=== PATIENT | female | born 2000 | race Caucasian/White ===

== ENCOUNTER 2024-01-17 17:15 | Emergency (ER) | payer MEDICAID, OTHER, SELFPAY ==
[2024-01-17 17:47] VITALS: BP 134/72; PULSE 90; RESP 18; TEMP 36.7; O2SAT 99; BMI 33.9
--- NOTE | 2024-01-17 17:48 | ED.HA ---
HPI - Headache General Chief Complaint: Headache Stated Complaint: headache Related Data Allergies Allergy/AdvReac Type Severity Reaction Status Date / Time No Known Allergies Allergy Verified 01/17/24 17:53 [facility] Social History Social History Advance Directives: No Advance Directives Information Provided: No Physical Exam Vital Signs: Vital Signs: Last Vital Signs Temp 98.1 F 01/17/24 17:47 Pulse 90 01/17/24 17:47 Resp 18 01/17/24 17:47 BP 134/72 01/17/24 17:47 Pulse Ox 99 01/17/24 17:47 O2 Del Method Room Air 01/17/24 17:47 BMI result Body Mass Index 33.9 Course Course Course Narrative: This is a Rapid Medical Examination (RME) in triage, full HPI, ROS, assessment and plan per primary provider in the Main ED. Ness is a 23 year old female presenting today for evaluation of headache for 1 week, pain in right upper extremity for 3 days and numbness on one side of the face for 3 hours. Took tylenol 3 hours ago without relief. Reports weakness and decreased strength on right side. Reports crisis with migraine headaches about 6 months ago. Has photophobia and blurriness with headaches. Plan: CT head, labs, treat for migraine Medical Decision Making Lab Data 01/17/24 18:06 01/17/24 18:06 Labs: Lab Results 01/17/24 Range/Units 18:06 WBC 8.6 (4.8-10.8) X10*3/uL RBC 4.51 (4.20-5.50) X10*6/uL Hgb 12.4 (12.0-16.0) g/dl Hct 38.4 (37.0-47.0) % MCV 85.1 (80.0-98.0) fL MCH 27.5 (27.0-33.0) pg MCHC 32.3 (31.0-35.0) g/dl RDW 13.0 (11.0-16.0) % Plt Count 306 (160-400) X10*3/uL MPV 8.9 L (9.4-12.3) fL Immature Gran % (Auto) 0.2 (0.0-0.4) % Neut % (Auto) 46.3 (45-73) % Lymph % (Auto) 46.2 H (20-40) % [place] % (Auto) 4.8 (2-11) % Eos % (Auto) 2.0 (0-4) % Baso % (Auto) 0.5 (0-2) % Lymph # (Auto) 4.0 (1.2-4.9) X10*3/uL [place] # (Auto) 0.4 (0.1-1.2) X10*3/uL Eos # (Auto) 0.2 (0.0-0.4) X10*3/uL Baso # (Auto) 0.0 (0.0-0.2) X10*3/uL Abs Immat Gran (auto) 0.02 (0.00-0.03) X10*3/uL Absolute Neuts (auto) 4.0 (2.0-8.3) x10*3/uL Absolute Nucleated RBC 0.000 (0.0-0.012) X10*3/uL Nucleated RBC % (auto) 0.0 (0.0-0.2) /100WBC Sodium 142 (135-145) mmol/L Potassium 3.8 (3.3-5.1) mmol/L Chloride 109 H (96-108) mmol/L Carbon Dioxide 25 (22-29) mmol/L Anion Gap 12 (12-20) BUN 10 (9-16) mg/dL Creatinine 0.73 (0.5-1.4) mg/dL Estim Creat Clear Calc 141.8 Estimated GFR > 60 Random Glucose 88 (60-115) mg/dL Calcium 9.3 (8.4-10.2) mg/dL Magnesium 2.1 (1.6-2.6) mg/dL Discharge Plan Discharge Clinical Impression: Headache Patient Disposition: Left W/O Completing Treatment Discharge Date/Time: 01/17/24 20:35 Print Language: Nepali
[2024-01-17 18:14] LABS: MANUAL DIFF FLAG NO
[2024-01-17 18:30] LABS: Anion Gap 12 (12-20); Blood Urea Nitrogen 10 mg/dL (9-16); Calcium 9.3 mg/dL (8.4-10.2); Carbon Dioxide 25 mmol/L (22-29); Chloride 109 mmol/L (96-108); Creatinine Clr Calc Pharmacy 141.8; Estimated Glomerular Filt Rate > 60; Glucose Random 88 mg/dL (60-115); Magnesium 2.1 mg/dL (1.6-2.6); Potassium 3.8 mmol/L (3.3-5.1); Sodium 142 mmol/L (135-145)
[2024-01-17 18:37] LABS: Basophils Percent Auto 0.5 % (0-2); Eosinophils Absolute Auto 0.2 X10*3/uL (0.0-0.4); Hematocrit 38.4 % (37.0-47.0); Hemoglobin 12.4 g/dl (12.0-16.0); Imm Gran Abs Auto 0.02 X10*3/uL (0.00-0.03); Imm Gran Pct Auto 0.2 % (0.0-0.4); Lymphocytes Percent Auto 46.2 % (20-40); Mean Corpuscular HGB Conc 32.3 g/dl (31.0-35.0); Mean Corpuscular Hemoglobin 27.5 pg (27.0-33.0); Mean Corpuscular Volume 85.1 fL (80.0-98.0); Mean Platelet Volume 8.9 fL (9.4-12.3); Monocytes Absolute Auto 0.4 X10*3/uL (0.1-1.2); Monocytes Percent Auto 4.8 % (2-11); Neutrophils Percent Auto 46.3 % (45-73); Platelet Count 306 X10*3/uL (160-400); Red Blood Count 4.51 X10*6/uL (4.20-5.50); White Blood Count 8.6 X10*3/uL (4.8-10.8)
== END 2024-01-17 20:35 | disposition left against medical advice (07) ==
PROVIDERS: Physician Assistant; Emergency Provider Emergency Medicine
DX: R51.9 Headache, unspecified (principal); M79.601 Pain in right arm
CPT/HCPCS: 36415; 80048; 83735; 85025; 99281; 99283

== ENCOUNTER 2024-05-14 12:50 | Outpatient (REF) | payer MEDICAID, OTHER, SELFPAY ==
[2024-05-14 16:06] LABS: MANUAL DIFF FLAG NO
[2024-05-14 16:16] LABS: Basophils Percent Auto 0.4 % (0-2); Eosinophils Absolute Auto 0.2 X10*3/uL (0.0-0.4); Eosinophils Percent Auto 2.6 % (0-4); Hematocrit 38.8 % (37.0-47.0); Hemoglobin 12.7 g/dl (12.0-16.0); Imm Gran Abs Auto 0.01 X10*3/uL (0.00-0.03); Imm Gran Pct Auto 0.1 % (0.0-0.4); Lymphocytes Percent Auto 40.4 % (20-40); Mean Corpuscular HGB Conc 32.7 g/dl (31.0-35.0); Mean Corpuscular Hemoglobin 27.4 pg (27.0-33.0); Mean Corpuscular Volume 83.8 fL (80.0-98.0); Mean Platelet Volume 9.4 fL (9.4-12.3); Monocytes Absolute Auto 0.4 X10*3/uL (0.1-1.2); Monocytes Percent Auto 5.7 % (2-11); Neutrophils Absolute Auto 3.8 x10*3/uL (2.0-8.3); Neutrophils Percent Auto 50.8 % (45-73); Platelet Count 346 X10*3/uL (160-400); Red Blood Count 4.63 X10*6/uL (4.20-5.50); Red Cell Distribution Width 13.4 % (11.0-16.0); White Blood Count 7.4 X10*3/uL (4.8-10.8)
[2024-05-14 16:19] LABS: Estimated Average Glucose 105 mg/dL; Hemoglobin A1c % 5.3 % (<6.0)
[2024-05-14 16:42] LABS: Alanine Aminotransferase 18 U/L (0-31); Albumin Level 4.3 g/dL (3.5-5.0); Alkaline Phosphatase 77 U/L (39-117); Anion Gap 12 (12-20); Aspartate Amino Transferase 16 U/L (5-31); Bilirubin Total 0.4 mg/dL (0.0-1.0); Blood Urea Nitrogen 13 mg/dL (9-16); Calcium 9.6 mg/dL (8.4-10.2); Carbon Dioxide 25 mmol/L (22-29); Chloride 108 mmol/L (96-108); Estimated Glomerular Filt Rate > 60; Glucose Random 93 mg/dL (60-115); Potassium 3.7 mmol/L (3.3-5.1); Sodium 141 mmol/L (135-145); Total Protein 7.2 g/dL (6.5-8.0)
[2024-05-14 16:50] LABS: HCG Quantitative < 2 mIU/mL; TSH reflex Free T4 1.36 uIU/mL (0.32-4.0); Vitamin B12 276 pg/mL (200-900); Vitamin D 25-OH Total 38.3 ng/mL (>30)
[2024-05-14 17:39] LABS: CT PCR NOT DETECTED (Not Detect.); NG PCR NOT DETECTED (Not Detect.)
[2024-05-15 04:43] LABS: HBc Num1 0.07 S/CO (0.00-0.79); HIV AB/AG Nonreactive (Nonreactive); HIV Num 1 0.05 S/CO (0.00-0.99); Hepatitis B Core Antibody Nonreactive (Nonreactive); Hepatitis B Surface Antigen Negative (Negative); ~HepC Num1 0.09 S/CO (0.00-0.79); ~Hepatitis B Surface Antibody NONREACTIVE (Nonreactive); ~Hepatitis C Antibody Nonreactive (Nonreactive)
[2024-05-15 10:50] LABS: Bacterial Vaginosis PCR POSITIVE (Negative); Candida Group PCR NOT DETECTED (Not Detect); Candida glab krusei PCR NOT DETECTED (Not Detect); Trichomonas vaginalis PCR NOT DETECTED (Not Detect)
[2024-05-15 12:12] LABS: RPR Rapid Plasma Reagin NON-REACTIVE (NON-REACTIVE)
[2024-05-17 02:29] LABS: TS Negative Control Passed; TS Panel A 0; TS Panel B 0; TS Positive Control Passed; TSpotTB Negative (Negative)
== END 2024-05-14 12:51 | disposition home or self-care (01) ==
LOC: HO.HHCL 12:50
PROVIDERS: Visit Provider Emergency Medicine
DX: Z11.4 Encounter for screening for human immunodeficiency virus [HIV] (principal); Z11.3 Encounter for screening for infections with a predominantly sexual mode of transmission; N92.6 Irregular menstruation, unspecified; R53.83 Other fatigue
CPT/HCPCS: 0352U; 36415; 80053; 82306; 82607; 83036; 84443; 84702; 85025; 86481; 86592; 86704; 86706; 86803; 87340; 87389; 87491; 87591

== ENCOUNTER 2025-01-10 13:00 | Emergency (ER) | payer OTHER, SELFPAY ==
[2025-01-10 13:57] VITALS: BP 119/61; PULSE 64; RESP 20; TEMP 37.2; O2SAT 100; BMI 36.4
--- NOTE | 2025-01-10 13:59 | ED_ITS ---
HPI - General Adult General Chief complaint: Nausea/Vomiting/Diarrhea Stated complaint: stomach pains, vomiting Related Data Allergies Allergy/AdvReac Type Severity Reaction Status Date / Time No Known Allergies Allergy Verified 01/10/25 13:57 [facility] Social History Social History Advance Directives: No Advance Directives Information Provided: No Physical Exam ED Vital Signs: BMI result Body Mass Index 36.4 Course Course Course Narrative: This is a rapid medical exam performed by Rosa Hdez NP: Additional HPI, ROS, PE not included below will be deferred to primary provider. Patient is a 24-year-old female presenting with LLQ abdominal pain, nausea, vomiting and diarrhea for the past 6 hours after eating some beef this morning. Plan: labs, viral panel, UA Discharge Plan Discharge Clinical Impression: Abdominal pain Patient Disposition: Left W/O Completing Treatment Discharge Date/Time: 01/10/25 21:25
== END 2025-01-10 21:25 | disposition left against medical advice (07) ==
PROVIDERS: Emergency Provider Emergency Medicine
DX: R10.9 Unspecified abdominal pain (principal); R11.2 Nausea with vomiting, unspecified
CPT/HCPCS: 99281

== ENCOUNTER 2025-09-05 04:57 | Emergency (ER) | payer SELFPAY ==
--- NOTE | ~2025-09-05 | US_ITS ---
EXAMINATION: US ABDOMEN LIMITED CLINICAL INFORMATION: Right upper quadrant pain.. COMPARISON: None available. TECHNIQUE: Real-time ultrasound of the right upper quadrant abdomen using grayscale technique. FINDINGS: PANCREAS: No peripancreatic fluid collections. LIVER: Liver measures 18 cm. No nodular contour. No solid or cystic lesion. Coarse echotexture. No intrahepatic biliary ductal dilatation. GALLBLADDER: Fluid-filled nondistended. No pericholecystic fluid collection or gallbladder wall thickening. COMMON BILE DUCT: 3 mm. RIGHT KIDNEY: 11 cm. Normal echotexture. Renal cortical thickness is normal. No hydronephrosis. No solid or cystic lesion.. FREE FLUID: None. US/US abdomen limited IMPRESSION: No cholelithiasis or choledocholithiasis. Hepatomegaly. No hydronephrosis, right kidney. No ascites. Electronically signed by: Ronnie Gonzalez MD 09/05/2025 08:38 AM EST
[2025-09-05 04:58] VITALS: BP 130/68; PULSE 76; RESP 20; TEMP 36.6; O2SAT 97; BMI 36.9
--- NOTE | 2025-09-05 05:05 | PC.NURSE ---
Assumed care of pt, abd pain x5 hour, no nausea, pt states pain worsen x1 hour CLIENT CARE SPECIALIST, [id number],
--- NOTE | 2025-09-05 05:15 | ECG_ITS ---
Test Reason : abd pain Blood Pressure : */* mmHG Vent. Rate : 64 BPM Atrial Rate : 64 BPM P-R Int : 182 ms QRS Dur : 94 ms QT Int : 384 ms P-R-T Axes : 18 12 37 degrees QTcB Int : 396 ms Normal sinus rhythm with sinus arrhythmia Normal ECG No previous ECGs available Referred By: Sheryl Llanes Electronically Signed By: VENKAT SELLERS
--- OUTSIDE RECORDS SUMMARY | 2025-09-05 05:33 | XMS_ITS | Clinical Summary ---
Author Organization [employer] Address [address] [place] [address] Care Team Providers Care Wrist Closer Name Role Phone Unavailable Primary Care Provider Unavailabl e Allergies No known active allergies Medications acetaminophen (Tylenol) 500 MG tablet Take 2 tablets (1,000 mg) by mouth every 6 (six) hours if needed for moderate pain or fever for up to 25 doses. 30 tablet 4 Active amitriptyline (Elavil) 10 MG tabletIndication s:Intractable chronic migraine without aura and without status migrainosus Take 1 tablet (10 mg) by mouth at bedtime. 30 tablet 1 4 Active SUMAtriptan (Imitrex) 50 MG tabletIndication s:Intractable chronic migraine without aura and without status migrainosus Take 1 tablet (50 mg) by mouth 1 (one) time if needed for migraine for up to 18 doses. May repeat dose once in 2 hours if no relief. Do not exceed 2 doses in 24 hours. 9 tablet 1 4 Active lidocaine (Lidoderm) 5 % patchIndications :Tenderness of neck Apply 1 patch topically Once per day. Remove & discard patch within 12 hours or as directed by MD. 30 patch 1 4 Active baclofen (Lioresal) 10 MG tabletIndication s:Tenderness of neck Take one tablet TID PRN 30 tablet 4 Active Active Problems Problem Noted Date Diagnosed Date Intractable chronic migraine without aura and without status migrainosus 05/14/2024 Irregular menses 05/14/2024 Social History Tobacco Use Types Packs/Day Years Used Date Smoking Tobacco: Never Smokeless Tobacco: Never Tobacco Cessation:Counseling Given: Not Answered Comments Unknown Sex and Gender Information Value Date Recorded Sex Assigned at Female 05/14/2024 10:36 AM EDT Legal Sex Female 10:34 AM EDT Gender Identity Female 05/14/2024 10:36 AM EDT Sexual Orientation Straight 05/14/2024 10 :36 AM EDT Last Filed Vital Signs Vital Sign Reading Time Taken Comments Blood Pressure 115/75 08/02/2024 2:14 PM EDT Pulse 70 08/02/2024 2:14 PM EDT Temperature 36.6 C (97.9 F) 08/02/2024 2:14 PM EDT Respiratory Rate 16 08/02/2024 2:14 PM EDT Oxygen Saturation 99% 05/14/2024 11:15 AM EDT RA Inhaled Oxygen Concentration - - Weight 98.9 kg (218 lb) 08/02/2024 2:14 PM EDT Height 167.4 cm (5' 5.9 ) 08/02/2024 2:14 PM EDT Body Mass Index 35.29 08/02/2024 2:14 PM EDT Plan of Treatment Health Maintenance Due Date Last Done Comments Depression Screening 2002 SDOH Screening 2002 Disability Screening 2002 Alcohol/Substance Use Screening 2014 Family Planning (PISQ) 2017 HPV Vaccines (1 - 3-dose series) 2017 Meningococcal B Vaccine (1 o f 2 - Standard) 2018 DTaP/Tdap/Td Vaccines (1 - Tdap) 2021 Hepatitis B Vaccines (1 of 3 - 19+ 3-dose series) 2021 Pap Smear 2023 Chlamydia and Gonorrhea Screening 05/14/2025 024 Tobacco Screening 05/14/2025 05/14/2024 COVID-19 Vaccine (1 - 2024-2 6 season) 2025 Influenza Vaccine (#1) 2025 Zoster Vaccines (1 of 2) 2052 RSV Patients and Pa tients Aged 60 years or older (1 - 1-dose 75+ series) 2077 HIV Screening Completed 05/14/2024 Hepatitis C Screening Completed 05/14/2024 HIB Vaccines Aged Out No longer eligi ble based on patient's age to complete this topic Hepatitis A Vaccines Aged Out No long er eligible based on patient's age to complete this topic IPV Vaccines Aged Out No longer eligi ble based on patient's age to complete this topic Meningococcal Vaccine Aged Out No onel marcie eligible based on patient's age to complete this topic Pneumococcal Vaccine: Pediat rics (0 to 5 Years) and At-Risk Patients (6 to 49) Years Aged Out No longer eligi ble based on patient's age to complete this topic RSV under 20 months Aged Out No longe r eligible based on patient's age to complete this topic Rotavirus Vaccines Aged Out No longer eligible based on patient's age to complete this topic Procedures Procedure Name Priority Date/Time Associated Diagnosis Comments HEPATITIS C AB W/REFL TO HCV RNA, QN, PCR Routine 05/14/2024 12:55 PM EDT Fatigue, unspecified type Irregular menses HIV 1/2 ANTIGEN/ANTIBODY, FOURTH GENERATION W/RFL Routine 05/14/2024 12:55 PM EDT Fatigue, unspecified type Irregular menses CHLAMYDIA/N. GONORRHOEAE RNA, TMA, UROGENITAL Routine 05/14/2024 12:55 PM EDT Irregular menses from Last 3 Months or Most Recently Relevant to Health Maintenance Results * Hepatitis C Antibody with Reflex to HCV, RNA, Quantitative, Real-Time PCR (05/14/2024 12:55 PM EDT) Hepatitis C Antibody Nonreactive Nonreactive [facility] Comment:Antibodies to HCV no t detected; does not exclude early acuteHCV infection. Blood Venous blood specimen / Unknown 05/14/2024 12:55 PM EDT 05/14/2024 3:57 PM EDT us Yeyo Gross MD LAB BLOOD ORDERABLES Final Resul t [facility] [address] [place] [phone] * Chlamydia/N. Gonorrhoeae RNA, TMA, Urogenitial (05/14/2024 12:55 PM EDT) CT PCR NOT DETECTED Not Detect. [facility] Comment:A not detected test result does not exclude the possibilityof infection because test results can be affected byimproper specimen collection, concurrent antibiotic therapy,or the number of organisms in the specimen which may bebelow the sensitivity of the test. As with many diagnostictests, results from the Xpert CT/NG assay should beinterpreted in conjunction with other laboratory andclinical data available to the clinician.Xpert CT/NG performance has not been evaluated in patientsless than 14 years of age. The assay should not be used forthe evaluationof suspected sexual abuse or for other medico-legalindications. Additional testing is recommended in anycircumstance when false positive or false negative resultscould lead to adverse medical, social or psychologicalconsequences. NG PCR NOT DETECTED Not Detect. [facility] Comment:A not detected test result does not exclude the possibilityof infection because test results can be affected byimproper specimen collection, concurrent antibiotic therapy,or the number of organisms in the specimen which may bebelow the sensitivity of the test. As with many diagnostictests, results from the Xpert CT/NG assay should beinterpreted in conjunction with other laboratory andclinical data available to the clinician.Xpert CT/NG performance has not been evaluated in patientsless than 14 years of age. The assay should not be used forthe evaluationof suspected sexual abuse or for other medico-legalindications. Additional testing is recommended in anycircumstance when false positive or false negative resultscould lead to adverse medical, social or psychologicalconsequences. Swab (Vaginal Swab) 05/14/2024 12:55 PM EDT 05/14/2024 4:01 PM EDT Narrative [facility] - 05/14/2024 5:39 PM EDT Urine us Yeyo Gross MD LAB MICROBIOLOGY - GENERAL ORDER OSVALDO Final Result [facility] [address] [place] [phone] * HIV-1/2 Antigen and Antibodies, Fourth Generation, with Reflexes (05/14/2024 12:55 PM EDT) HIV AB/AG Nonreactive Nonreactive [facility] Comment:HIV-1 p24 Ag and/or HIV-1/HIV-2 Ab not detected.A test result that is nonreactive does not exclude thepossibility of exposure to or infection with HIV-1 and/orHIV-2. Nonreactive results in this assay for individualswith prior exposure to HIV-1 and/or HIV-2 may be due toantigen and antibody levels that are below the limit ofdetection of this assay.[facility] HIV Ag/Ab Combo assay result andsupplemental assay results should be interpreted inconjunction with the patient's clinical presentation,history and other laboratory results. If the results areinconsistent with clinical evidence, additional testing issuggested to confirm the result. Blood Venous blood specimen / Unknown 05/14/2024 12:55 PM EDT 05/14/2024 3:57 PM EDT us Yeyo Gross MD LAB BLOOD ORDERABLES Final Resul t [facility] [address] [place] [phone] from Last 3 Months or Most Recently Relevant to Health Maintenance
[2025-09-05 05:38] LABS: Hematocrit 36.4 % (37.0-47.0); Hemoglobin 12.3 g/dl (12.0-16.0); Imm Gran Abs Auto 0.02 X10*3/uL (0.00-0.03); Imm Gran Pct Auto 0.2 % (0.0-0.4); Lymphocytes Absolute Auto 2.4 X10*3/uL (1.2-4.9); MANUAL DIFF FLAG NO; Mean Corpuscular HGB Conc 33.8 g/dl (31.0-35.0); Mean Corpuscular Hemoglobin 27.3 pg (27.0-33.0); Mean Corpuscular Volume 80.9 fL (80.0-98.0); NRBC Abs Auto 0.000 X10*3/uL (0.0-0.012); NRBC Pct Auto 0.0 /100WBC (0.0-0.2); Platelet Count 303 X10*3/uL (160-400); Red Blood Count 4.50 X10*6/uL (4.20-5.50); White Blood Count 9.2 X10*3/uL (4.8-10.8)
--- NOTE | 2025-09-05 05:57 | ED.GENADULT ---
HPI - General Adult General Chief complaint: Abdominal Pain Stated complaint: abd pain Time Seen by Provider: 09/05/25 05:57 History of Present Illness ED Provider: Jomar DUMONT narrative: The patient is a 25-year-old female who presents with a proximally 5 hours of upper abdominal pain. She says that she last ate food yesterday afternoon. Therefore the pain was not immediately preceded by any food intake. The patient says that she has had a couple of similar episodes of pain like this over the last few months but never this severe. There is some mild nausea. No vomiting. No diarrhea. No fever. No urinary symptoms. The patient is not sexually active. The patient had what may have been umbilical hernia repair surgery as a child. No other abdominal surgeries. She is on no medications and has no other medical conditions. Related Data Previous Rx's ?Medication ?Instructions ?Recorded famotidine 40 mg tablet 40 mg PO DAILY #30 tabs 09/05/25 sucralfate 1 gram tablet 1 g PO TID PRN abdominal pain #60 09/05/25 tabs Allergies Allergy/AdvReac Type Severity Reaction Status Date / Time No Known Allergies Allergy Verified 09/05/25 05:01 Review of Systems Review of Systems: Yes all other systems are reviewed and are negative [facility] Social History Social History Advance Directives: No Physical Exam ED Vital Signs: Vital Signs - 24 hr 09/05/25 04:58 09/05/25 07:19 09/05/25 09:19 Temperature 97.8 F 98.0 F 97.6 F Pulse Rate 76 76 80 Respiratory Rate 20 16 16 Blood Pressure 130/68 122/73 120/76 Pulse Oximetry 97 100 99 Oxygen Delivery Method Room Air Room Air Room Air BMI result Body Mass Index 36.9 Const Other: The patient is awake, alert, pleasant, cooperative. She does not appear in overt distress. Orientation/consciousness: patient oriented x3 HENMT Other: The face is symmetrical. ?Mucous membranes moist. Eyes Other: Pupils are round equal, conjunctivae are clear, extraocular movements intact Neck Neck: Yes normal visual inspection and Yes full ROM Resp Effort & Inspection: normal respiratory effort Auscultation: clear to auscultation bilaterally Cardio Rate: regular rate Rhythm: regular rhythm Heart sounds: S1 normal heart sound present and S2 normal heart sound present GI Other: The patient is tender in the upper abdomen, in the epigastrium in the right upper quadrant. Skin Other: The skin is dry and unremarkable Neuro General: patient oriented x3, moves all extremities, no focal motor deficits and CN's II-XI intact bilaterally Extrem Other: There is no calf swelling or tenderness. No asymmetry. No peripheral edema. Medications Administered Discontinued Medications Generic Name Dose Route Start Last Admin Trade Name Camiloq PRN Reason Stop Dose Admin Sodium Chloride 1,000 mls @ 999 mls/hr 09/05/25 06:15 09/05/25 07:43 Ns IV 09/05/25 07:15 Infused .Q1H1M TEA Infusion Ketorolac Tromethamine 15 mg 09/05/25 06:08 09/05/25 06:33 Ketorolac Tromethamine 15 Mg/Ml Vial IVPUSH 09/05/25 06:09 15 mg ONCE ONE Administration Ondansetron HCl 4 mg 09/05/25 06:08 09/05/25 06:33 Ondansetron Hcl 4 Mg/2 Ml Vial IVPUSH 09/05/25 06:09 4 mg ONCE ONE Administration Sucralfate 1 gm 09/05/25 09:08 09/05/25 09:16 Sucralfate Oral Suspension 1 Gm/10 Ml Oral.Susp PO 09/05/25 09:09 1 gm ONCE ONE Administration Medical Decision Making Medical Decision Making [facility] Narrative: The patient is a 25-year-old female who presents with for evaluation of upper abdominal pain. She seemed to have tenderness in her epigastrium and in the right upper quadrant. Differential diagnosis would include gastritis versus biliary colic. Labs are unremarkable. An ultrasound was done to evaluate for possible gallstones. This was negative. The patient's urine is also unremarkable. LFTs are normal. test is negative. Lipase is normal. CBC shows a normal white count and differential. Given the negative ultrasound I think this is probably gastritis. She was treated with IV ketorolac with improvement in her pain. She will be discharged with a prescriptions for famotidine and sucralfate. She does not have a PCP. She is given contact information for local PCP offices. She should work on getting a primary care doctor. She should return to the emergency room if worse. Lab Data 09/05/25 05:31 09/05/25 05:31 Labs: Lab Results 11/20/25 11/20/25 Range/Units 05:31 08:36 WBC 9.2 (4.8-10.8) X10*3/uL RBC 4.50 (4.20-5.50) X10*6/uL Hgb 12.3 (12.0-16.0) g/dl Hct 36.4 L (37.0-47.0) % MCV 80.9 (80.0-98.0) fL MCH 27.3 (27.0-33.0) pg MCHC 33.8 (31.0-35.0) g/dl RDW 13.2 (11.0-16.0) % Plt Count 303 (160-400) X10*3/uL MPV 8.5 L (9.4-12.3) fL Immature Gran % (Auto) 0.2 (0.0-0.4) % Neut % (Auto) 61.9 (45-73) % Lymph % (Auto) 26.6 (20-40) % [place] % (Auto) 6.3 (2-11) % Eos % (Auto) 4.5 H (0-4) % Baso % (Auto) 0.5 (0-2) % Lymph # (Auto) 2.4 (1.2-4.9) X10*3/uL [place] # (Auto) 0.6 (0.1-1.2) X10*3/uL Eos # (Auto) 0.4 (0.0-0.4) X10*3/uL Baso # (Auto) 0.1 (0.0-0.2) X10*3/uL Abs Immat Gran (auto) 0.02 (0.00-0.03) X10*3/uL Absolute Neuts (auto) 5.7 (2.0-8.3) x10*3/uL Absolute Nucleated RBC 0.000 (0.0-0.012) X10*3/uL Nucleated RBC % (auto) 0.0 (0.0-0.2) /100WBC Sodium 139 (135-145) mmol/L Potassium 3.5 (3.3-5.1) mmol/L Chloride 107 (96-108) mmol/L Carbon Dioxide 23 (22-29) mmol/L Anion Gap 13 (12-20) BUN 10 (9-16) mg/dL Creatinine 0.59 (0.5-1.4) mg/dL Estim Creat Clear Calc 174.3 Estimated GFR > 60 Random Glucose 102 (60-115) mg/dL Calcium 8.9 D (8.4-10.2) mg/dL Magnesium 1.9 (1.6-2.6) mg/dL Total Bilirubin 0.5 (0.0-1.0) mg/dL Direct Bilirubin 0.2 (0.0-0.5) mg/dL AST 22 (5-31) U/L ALT 22 (0-31) U/L Alkaline Phosphatase 73 (39-117) U/L Total Protein 6.7 (6.5-8.0) g/dL Albumin 4.2 (3.5-5.0) g/dL Lipase 17 (8-78) U/L Beta HCG, Quant < 2 mIU/mL Urine Color Yellow Urine Appearance Clear Urine pH 7.5 (5.0-9.0) Ur Specific [place] 1.010 (1.005-1.025) Urine Protein Negative (Neg-Trace) mg/dL Urine Glucose (UA) Negative (Negative) mg/dL Urine Ketones Negative (Negative) mg/dL Urine Blood Negative (Negative) Urine Nitrite Negative (Negative) Ur Leukocyte Esterase Trace H (Negative) Urine RBC 0-2 (0-2) /HPF Urine WBC 0-5 (0-5) /HPF Ur Squamous Epith Cells 3-5 (0-2) /HPF Urine Bacteria Trace (None Seen) Hyaline Casts 0-2 (0-2) /LPF Discharge Plan Discharge Clinical Impression: Upper abdominal pain Patient Disposition: Home, Self-Care Instructions: Gastritis (ED) Additional Instructions: We did an ultrasound in the emergency room today to see if you might have gallstones. We do not see any gallstones in your gallbladder. I think your pain is probably coming from a stomach acid problem. An irritation of the lining of the stomach can be caused by stomach acid. We call this condition ?gastritis. ? To try to treat your symptoms I have sent two prescriptions to your pharmacy. Please take the famotidine once a day regardless of how you are feeling. This medication helps reduce stomach acid production. The second medicine is sucralfate. This can be used on an as-needed basis. This is a medicine that can soothe the lining of your stomach. Please work on getting a primary care doctor. You has been given contact information for several local primary care offices. If at any point you are significantly worse please return to the emergency department. Prescriptions: New famotidine 40 mg tablet 40 mg PO DAILY Qty: 30 0RF sucralfate 1 gram tablet 1 g PO TID PRN (Reason: abdominal pain) Qty: 60 0RF Referrals: [facility] [Provider Group] [facility] [Provider Group] [facility] [Provider Group, Internal Medicine] [facility] [Provider Group, Internal Medicine] [facility] [place] [facility] [Provider Group, Primary Care] Megan Huston MD [Physician, Internal Medicine] Print Language: Wolof
[2025-09-05 06:00] LABS: Alanine Aminotransferase 22 U/L (0-31); Albumin Level 4.2 g/dL (3.5-5.0); Alkaline Phosphatase 73 U/L (39-117); Anion Gap 13 (12-20); Aspartate Amino Transferase 22 U/L (5-31); Blood Urea Nitrogen 10 mg/dL (9-16); Calcium 8.9 mg/dL (8.4-10.2); Carbon Dioxide 23 mmol/L (22-29); Chloride 107 mmol/L (96-108); Creatinine Clr Calc Pharmacy 174.3; Estimated Glomerular Filt Rate > 60; Lipase 17 U/L (8-78); Magnesium 1.9 mg/dL (1.6-2.6); Potassium 3.5 mmol/L (3.3-5.1); Sodium 139 mmol/L (135-145); Total Protein 6.7 g/dL (6.5-8.0)
[2025-09-05 07:19] VITALS: BP 122/73; PULSE 76; RESP 16; TEMP 36.7; O2SAT 100
[2025-09-05 08:43] LABS: Appearance Urine Clear; Glucose Urine UA Negative (Negative); PH 7.5 (5.0-9.0); Specific Gravity - Urine 1.010 (1.005-1.025); UMIC TRIGGER UACC YES
[2025-09-05] MEDS: Sucralfate Oral Suspension 1 GM/10 ML ORAL.SUSP PO (09:16)
[2025-09-05 09:19] VITALS: BP 120/76; PULSE 80; RESP 16; TEMP 36.4; O2SAT 99
[2025-09-05 09:31] VITALS: BP 120/76; PULSE 80; RESP 16; TEMP 36.4; O2SAT 99
== END 2025-09-05 09:32 | disposition home or self-care (01) ==
PROVIDERS: Emergency Medicine; Emergency Provider Emergency Medicine
DX: R10.11 Right upper quadrant pain (principal)
CPT/HCPCS: 36415; 76705; 80048; 80076; 81001; 83690; 83735; 84702; 85025; 93005; 96361; 96374; 96375; 99284; J1885; J2405

== ENCOUNTER → 2025-09-05 05:15 | Outpatient (BNV) | payer SELFPAY | PROVIDERS: Emergency Provider Emergency Medicine; Visit Provider Internal Medicine | DX: R10.9 Unspecified abdominal pain (principal) | CPT/HCPCS: 93010 ==

== ENCOUNTER → 2025-09-05 06:07 | Outpatient (BNV) | payer SELFPAY | PROVIDERS: Emergency Provider Emergency Medicine; Visit Provider Radiology Diagnostic Radiology | DX: R16.0 Hepatomegaly, not elsewhere classified (principal) | CPT/HCPCS: 76705 ==